=== PATIENT | male | born 1940 | race Two or more races ===

== ENCOUNTER 2023-01-08 07:09 | Emergency (ER) | payer MEDICARE, MEDICAID ==
[~2023-01-08] VITALS: Ht 172.7 cm; Wt 92.0 kg
[2023-01-08] MEDS ORDERED: HYDROcodone-ACET 10/325MG TAB PO ONE (08:30)
[2023-01-08 09:17] LABS: Basophils # (auto) 0.1 10 ^3/uL (0-0.2); Eosinophils # (auto) 0.1 10 ^3/uL (0-0.8)
[2023-01-08 09:19] LABS: Basophils % (auto) 0.9 % (0.0-2.0); Eosinophils % (auto) 1.4 % (0.0-7.0); Hematocrit 36.2 % (41.0-53.0); Lymphocytes # (auto) 0.9 10 ^3/uL (0.4-5.4); Lymphocytes % (auto) 10.3 % (10.0-50.0); Mean Corpuscular Hemoglobin 34.4 pg (28.0-32.0); Mean Corpuscular Hgb Conc. 33.2 g/dL (32.0-36.0); Mean Corpuscular Volume 103.8 fL (80.0-100.0); Monocytes # (auto) 0.6 10 ^3/uL (0-1.3); Monocytes % (auto) 6.6 % (0.0-12.0); Neutrophils # (auto) 7.3 10 ^3/uL (1.6-8.6); Neutrophils % (auto) 80.8 % (37.0-80.0); Red Blood Cells 3.49 10^6/uL (4.5-5.90); Red Cell Distribution Width 15.9 % (11.8-14.3)
[2023-01-08 09:38] LABS: Albumin 3.7 g/dL (3.4-5.0); Calcium 10.5 mg/dL (8.5-10.1); Potassium 5.5 mmol/L (3.5-5.1)
[2023-01-08 09:43] LABS: BUN/Creatinine Ratio 7.8 (10.0-20.0); Bilirubin, Total 0.7 mg/dL (0.2-1.0); Total Protein 7.8 g/dL (6.4-8.2)
[2023-01-08 12:40] VITALS: BP 141/76
== END 2023-01-08 13:11 | disposition home or self-care (01) ==
LOC: EDBD 07:09 → ER 07:09
DX: M51.36 Other intervertebral disc degeneration, lumbar region (principal); E11.9 Type 2 diabetes mellitus without complications; I10 Essential (primary) hypertension
CPT/HCPCS: 36415; 72128; 72131; 80053; 84484; 85025; 85379